=== PATIENT | female | born 1965 | race Caucasian/White ===

== ENCOUNTER 2018-09-09 06:37 | Day surgery (SDC) | payer BC ==
[2018-09-01 11:46] VITALS: BMI 24.5
[2018-09-09] MEDS ORDERED: LIDOCAINE HCL 1% PRESERVATIVE FREE - 30ML VIAL ONE (07:06)
[2018-09-09] MEDS ORDERED: LIDOCAINE HCL 2% (20ML MULTI-DOSE VIAL) NR ONE (07:07)
[2018-09-09] MEDS ORDERED: PROPOFOL 20 ML ONE (07:22)
[2018-09-09] MEDS ORDERED: SUCCINYLCHOLINE CHLORIDE 200 MG/10 ML VIAL ONE (07:23)
[2018-09-09] MEDS ORDERED: MIDAZOLAM HCL 2 MG/2 ML SINGLE DOSE VIAL ONE (07:23)
[2018-09-09] MEDS ORDERED: ONDANSETRON 4 MG/2 ML VIAL ONE (07:24)
[2018-09-09] MEDS ORDERED: SODIUM CHLORIDE 0.9% P/F 10 ML VIAL IJ ONE (07:24)
[2018-09-09] MEDS ORDERED: ceFAZolin SODIUM 1 GM VIAL ONE (07:24)
[2018-09-09] MEDS ORDERED: LIDOCAINE HCL/PF 2% SDV 5ML VIAL ONE (07:24)
[2018-09-09] MEDS ORDERED: LIDOCAINE HCL 2% (50ML VIAL) INF ONE (08:05)
[2018-09-09 08:46] VITALS: TEMP 98.5
[2018-09-09 09:32] VITALS: BP 122/78; PULSE 76
[2018-09-09] MEDS ORDERED: ACETAMINOPHEN 325 MG TABLET (FP) ONE (09:34)
[2018-09-09] MEDS ORDERED: ACETAMINOPHEN 325 MG TABLET (FP) PO ONE (11:33)
--- NOTE | 2018-09-10 09:50 | OP ---
DATE OF OPERATION: 09/09/2018 PREOPERATIVE DIAGNOSIS: 1. Right thumb mucoid cyst/mass. 2. Right thumb interphalangeal joint arthrosis. OPERATIVE PROCEDURE: 1. Right thumb mass excision. 2. Right thumb interphalangeal debridement and removal of bone spur and joint synovectomy. SURGEON: Jamar Blackman MD ANESTHESIA: Local with sedation. COMPLICATIONS: None. ESTIMATED BLOOD LOSS: Minimal. INDICATIONS FOR PROCEDURE: The patient is a 53-year-old female with the above findings, indicated for operative treatment. The risks, benefits, and alternatives were discussed with the patient at length, and proper informed consent was obtained. PROCEDURE: After proper identification of the patient and the correct operative site, the patient was brought to the operating room and placed supine on the operating table with prominences well padded. Sedation and local anesthesia were given. Right upper extremity was prepped and draped in the usual sterile fashion. Well-padded tourniquet was placed with a sterile prep. Esmarch bandage was used to exsanguinate the right upper extremity. Tourniquet was inflated to 250 mmHg. A T-shaped incision was made over the dorsal aspect of the IP joint to the thumb. Incision was taken sharply to the skin with blunt and sharp dissection through subcutaneous tissues. Mass is a cystic structure in the eponychial area coming from the joint, and it was traced back to the IP joint and excised in whole. The IP joint was then opened, and the collateral ligament on this side was left in place. The joint had a significant amount of synovitis and a large bone spur in this area, and this was removed and debrided. Wound was irrigated and repaired with a 5-0 nylon suture. Sterile dressings were applied. Patient was brought to the recovery room in stable condition. She tolerated the procedure well. JAMAR BLACKMAN M.D. [id number]
--- NOTE | 2018-09-16 16:03 | PATH ---
Surgical Pathology Report Patient Name: JAE LEIGH Med. Rec. #: [id number] /Age/Gender: 1965 (Age: 53) / F Account: [id number] Location: [facility] AM[facility] Taken: 09/10/2018 Received: 09/10/2018 Reported: 09/16/2018 Physicians: Jamar Adams M.D. Specimen(s) Received RIGHT THUMB MASS Clinical History Right thumb arthrosis with cyst Final Diagnosis RIGHT THUMB MASS, BIOPSY: FIBROCONNECTIVE TISSUE WITH CHRONIC INFLAMMATORY INFILTRATE AND FIBROSIS. Electronically Signed Rodolfo Ryan M.D. Gross Description Received in formalin labeled "right thumb mass," is a 0.2 cm greatest dimension dey soft tissue fragment. The specimen is submitted in toto in one cassette. 09/11/201809/11/2018
== END 2018-09-09 09:38 | disposition home or self-care (01) ==
LOC: FASU 06:37
PROVIDERS: ATTEND Orthopaedic Surgery Hand Surgery
PROC: 0LB70ZZ Excision of Right Hand Tendon, Open Approach (ICD-10-PCS; principal; 2018-09-09 08:00)
DX: D21.11 Benign neoplasm of connective and other soft tissue of right upper limb, including shoulder (principal); M19.041 Primary osteoarthritis, right hand; M25.741 Osteophyte, right hand
CPT/HCPCS: 82962; 88304-TC